=== PATIENT | male | born 1935 | race Caucasian/White ===

== ENCOUNTER 2017-04-02 10:10 | Emergency (ER) | payer MEDICARE, OTHER ==
[~2017-04-02] VITALS: Ht 167.6 cm; Wt 55.0 kg
[~2017-04-02 10:10] MED LIST: ANDROGEL1 % TD; COD LIVE1 PO; DOXAZOSIN1 MG PO; FLUARIX QUADRIV1 IN2 IM; FLUARIX QUADRIV1 INJ IM; FLULAVAL IM; FLUZONE SPLT1 M1 IM; LOTRISONE TOP; NAPROSYN500 MG PO; PROLIA60 MG/ML SC; XALATAN 0.005%2.5 ML OP; ZPAK PO; ZYRTEC ALLGY10 M1 PO
[2017-04-02] MEDS ORDERED: CALCIUM1250 MG PO (10:37)
[2017-04-02 11:15] LABS: URINE BILIRUBIN - DIPSTICK NEGATIVE (NEGATIVE); URINE BLOOD DIPSTICK NEGATIVE (NEGATIVE); URINE CLARITY CLEAR; URINE COLOR YELLOW; URINE GLUCOSE - DIPSTICK NEGATIVE (NEGATIVE); URINE KETONE TRACE mg/dL (NEGATIVE); URINE LEUK ESTERASE NEGATIVE (NEGATIVE); URINE NITRITE - DIPSTICK NEGATIVE (Negative); URINE PH 6.5 (4.5-8.0); URINE PROTEIN - DIPSTICK NEGATIVE (NEG-TRACE); URINE SPECIFIC GRAVITY 1.015
[2017-04-02 11:40] LABS: HEMOGLOBIN 11.7 g/dl (14.0-18.0); IMMATURE GRANULOCYTES 0.2 % (0.0-1.0); MEAN CELL VOLUME 96.3 fL CALC (80.0-100.0); MEAN CORPUSCULAR HGB 31.3 pG CALC (26.0-32.0); MEAN CORPUSCULAR HGB CONC 32.5 g/L CALC (32.0-36.0); NEUT# 3.85 thou/uL (1.82-7.42); RED BLOOD COUNT 3.74 mill/uL (4.70-6.10)
[2017-04-02 12:01] LABS: ALBUMIN 3.7 g/dL (3.2-5.0); ALKALINE PHOSPHATASE 43 u/l (38-126); ANION GAP 11 (6-22 (CALC)); BILIRUBIN, TOTAL 0.7 mg/dL (0.0-1.4); BUN 21 mg/dL (8-23); BUN/CREATININE RATIO 21 (12-20 (CALC)); CALCIUM 9.5 mg/dL (8.4-10.2); CARBON DIOXIDE 31 mmol/l (22-30); CHLORIDE 102 mmol/l (95-108); GFR > 60 ML/MIN (>=60 (CALC)); GFR FOR AFR.AMER. > 60 ML/MIN (>=60 (CALC)); GLUCOSE 79 mg/dL (82-115); POTASSIUM 4.1 mmol/l (3.5-5.1); SGOT/AST 25 u/l (19-48); SGPT/ALT 26 u/l (11-66); SODIUM 139 mmol/l (137-146); TOTAL PROTEIN 6.2 g/dL (6.3-8.2)
[2017-04-02 13:20] VITALS: BP 129/74
== END 2017-04-02 13:20 | disposition home or self-care (01) ==
LOC: ED 10:10
PROVIDERS: Emergency Medicine
DX: N30.90 Cystitis, unspecified without hematuria (principal)

== ENCOUNTER 2017-05-13 10:35 | Emergency (ER) | payer MEDICARE, OTHER ==
[~2017-05-13] VITALS: Ht 167.6 cm; Wt 58.2 kg
[~2017-05-13 10:35] MED LIST changes: +CALCIUM1250 MG PO
[2017-05-13] MEDS ORDERED: DORZOLAMIDE2 % OU (10:48)
[2017-05-13 11:45] LABS: URINE BILIRUBIN - DIPSTICK NEGATIVE (NEGATIVE); URINE BLOOD DIPSTICK NEGATIVE (NEGATIVE); URINE CLARITY CLEAR; URINE COLOR YELLOW; URINE GLUCOSE - DIPSTICK NEGATIVE (NEGATIVE); URINE KETONE NEGATIVE (NEGATIVE); URINE LEUK ESTERASE NEGATIVE (NEGATIVE); URINE NITRITE - DIPSTICK NEGATIVE (Negative); URINE PROTEIN - DIPSTICK NEGATIVE (NEG-TRACE); URINE UROBILINOGEN - DIPSTICK 0.2 E.U./dL (0.2)
[2017-05-13 12:42] VITALS: BP 143/69
== END 2017-05-13 12:52 | disposition home or self-care (01) ==
LOC: ED 10:35
PROVIDERS: Emergency Medicine
DX: N40.1 Benign prostatic hyperplasia with lower urinary tract symptoms (principal); R33.8 Other retention of urine

== ENCOUNTER 2017-08-07 16:52 | Emergency (ER) | payer MEDICARE, OTHER ==
[~2017-08-07] VITALS: Ht 167.6 cm; Wt 59.0 kg
[~2017-08-07 16:52] MED LIST changes: +DORZOLAMIDE2 % OU
[2017-08-07 20:10] LABS: HEMATOCRIT 35.4 % (39.0-50.0); HEMOGLOBIN 11.7 g/dl (14.0-18.0); IMMATURE GRANULOCYTES 0.4 % (0.0-1.0); MEAN CELL VOLUME 95.2 fL CALC (80.0-100.0); MEAN CORPUSCULAR HGB 31.5 pG CALC (26.0-32.0); MEAN CORPUSCULAR HGB CONC 33.1 g/L CALC (32.0-36.0); NEUT# 9.31 thou/uL (1.82-7.42); RED BLOOD COUNT 3.72 mill/uL (4.70-6.10); RED CELL DISTRI WIDTH 13.2 % (11.5-15.5)
[2017-08-07 20:15] LABS: URINE BILIRUBIN - DIPSTICK NEGATIVE (NEGATIVE); URINE BLOOD DIPSTICK NEGATIVE (NEGATIVE); URINE COLOR YELLOW; URINE GLUCOSE - DIPSTICK NEGATIVE (NEGATIVE); URINE KETONE 15 mg/dL (NEGATIVE); URINE LEUK ESTERASE NEGATIVE (NEGATIVE); URINE NITRITE - DIPSTICK NEGATIVE (Negative); URINE PROTEIN - DIPSTICK NEGATIVE (NEG-TRACE); URINE SPECIFIC GRAVITY 1.025; URINE UROBILINOGEN - DIPSTICK 0.2 E.U./dL (0.2)
[2017-08-07 20:21] LABS: URINE CLARITY CLEAR
[2017-08-07 20:30] LABS: ALBUMIN 3.9 g/dL (3.2-5.0); ALKALINE PHOSPHATASE 65 u/l (38-126); ANION GAP 15 (6-22 (CALC)); BUN 17 mg/dL (8-23); BUN/CREATININE RATIO 20 (12-20 (CALC)); CALCIUM 9.5 mg/dL (8.4-10.2); CARBON DIOXIDE 29 mmol/l (22-30); CHLORIDE 101 mmol/l (95-108); CREATININE 0.9 mg/dL (0.7-1.3); GFR > 60 ML/MIN (>=60 (CALC)); GFR FOR AFR.AMER. > 60 ML/MIN (>=60 (CALC)); GLUCOSE 118 mg/dL (82-115); POTASSIUM 4.1 mmol/l (3.5-5.1); SGOT/AST 29 u/l (19-48); SGPT/ALT 33 u/l (11-66); SODIUM 140 mmol/l (137-146); TOTAL PROTEIN 6.6 g/dL (6.3-8.2)
[2017-08-07 20:40] LABS: INFLUENZA A NONE DETECTED (NONE DETECT); INFLUENZA B NONE DETECTED (NONE DETECT)
[2017-08-07] MEDS ORDERED: AUGMENTIN875TAB PO (21:32)
[2017-08-07 22:08] VITALS: BP 144/69
== END 2017-08-07 22:06 | disposition home or self-care (01) ==
LOC: ED 16:52
PROVIDERS: Emergency Medicine
DX: M47.813 Spondylosis without myelopathy or radiculopathy, cervicothoracic region (principal); J02.0 Streptococcal pharyngitis

== ENCOUNTER → 2018-06-27 | Outpatient (REF) | payer MEDICARE, OTHER ==
[~2018-06-27] MED LIST changes: +AUGMENTIN875TAB PO
[2018-06-27 09:11] LABS: HEMATOCRIT 40.5 % (39.0-50.0); HEMOGLOBIN 12.8 g/dl (14.0-18.0); IMMATURE GRANULOCYTES 0.4 % (0.0-5.0); MEAN CELL VOLUME 97.6 fL CALC (80.0-100.0); MEAN CORPUSCULAR HGB 30.8 pG CALC (26.0-32.0); MEAN CORPUSCULAR HGB CONC 31.6 g/L CALC (32.0-36.0); NEUT# 3.59 thou/uL (1.82-7.42); RED BLOOD COUNT 4.15 mill/uL (4.70-6.10); RED CELL DISTRI WIDTH 13.5 % (11.5-15.5)
[2018-06-27 09:46] LABS: ALBUMIN 3.6 g/dL (3.2-5.0); ALKALINE PHOSPHATASE 51 u/l (38-126); ANION GAP 11 (6-22 (CALC)); BILIRUBIN, TOTAL 0.9 mg/dL (0.0-1.4); BUN 22 mg/dL (8-23); BUN/CREATININE RATIO 20 (12-20 (CALC)); CALCULATED LDLCHOLESTEROL 76 mg/dL (62-129 (CALC)); CARBON DIOXIDE 31 mmol/l (22-30); CHLORIDE 103 mmol/l (95-108); CREATININE 1.1 mg/dL (0.7-1.3); GFR > 60 ML/MIN (>=60 (CALC)); GFR FOR AFR.AMER. > 60 ML/MIN (>=60 (CALC)); HDL CHOLESTEROL 44 mg/dL (>=40); POTASSIUM 4.1 mmol/l (3.5-5.1); SGOT/AST 24 u/l (19-48); SODIUM 141 mmol/l (137-146); TOTAL CHOLESTEROL 132 mg/dl (0-199); TOTAL PROTEIN 6.3 g/dL (6.3-8.2); TOTAL TRIGLYCERIDES 58 mg/dl (30-149); VLDL CHOLESTROL 12 mg/dl (0-38 (CALC))
== END | disposition home or self-care (01) ==
LOC: LAB 08:36
PROVIDERS: ATTEND Internal Medicine Geriatric Medicine
DX: I10 Essential (primary) hypertension (principal); M81.0 Age-related osteoporosis without current pathological fracture

== ENCOUNTER → 2018-11-30 | Outpatient (REF) | payer MEDICARE, OTHER ==
[2018-11-30 09:45] LABS: HEMATOCRIT 40.3 % (39.0-50.0); HEMOGLOBIN 12.7 g/dl (14.0-18.0); IMMATURE GRANULOCYTES 0.3 % (0.0-5.0); MEAN CELL VOLUME 96.4 fL CALC (80.0-100.0); MEAN CORPUSCULAR HGB 30.4 pG CALC (26.0-32.0); MEAN CORPUSCULAR HGB CONC 31.5 g/L CALC (32.0-36.0); NEUT# 4.17 thou/uL (1.82-7.42); RED BLOOD COUNT 4.18 mill/uL (4.70-6.10)
[2018-11-30 11:57] LABS: ALBUMIN 3.9 g/dL (3.2-5.0); ALKALINE PHOSPHATASE 75 u/l (38-126); ANION GAP 11 (6-22 (CALC)); BILIRUBIN, TOTAL 0.6 mg/dL (0.0-1.4); BUN 24 mg/dL (8-23); BUN/CREATININE RATIO 21 (12-20 (CALC)); CALCULATED LDLCHOLESTEROL 76 mg/dL (62-129 (CALC)); CARBON DIOXIDE 30 mmol/l (22-30); CHLORIDE 102 mmol/l (95-108); CHOLESTEROL HDL RATIO 2.8 (<4.4 (CALC)); CREATININE 1.1 mg/dL (0.7-1.3); GFR > 60 ML/MIN (>=60 (CALC)); GFR FOR AFR.AMER. > 60 ML/MIN (>=60 (CALC)); HDL CHOLESTEROL 47 mg/dL (>=40); POTASSIUM 4.3 mmol/l (3.5-5.1); SGOT/AST 28 u/l (19-48); SODIUM 139 mmol/l (137-146); TOTAL CHOLESTEROL 132 mg/dl (0-199); TOTAL PROTEIN 6.5 g/dL (6.3-8.2); TOTAL TRIGLYCERIDES 44 mg/dl (30-149); VLDL CHOLESTROL 9 mg/dl (0-38 (CALC))
== END | disposition home or self-care (01) ==
LOC: LAB 09:02
PROVIDERS: ATTEND Internal Medicine Geriatric Medicine
DX: I10 Essential (primary) hypertension (principal)

== ENCOUNTER 2019-02-13 13:41 | Emergency (ER) | payer MEDICARE, OTHER ==
[~2019-02-13] VITALS: Ht 167.6 cm; Wt 59.0 kg
[2019-02-13] MEDS ORDERED: LUPRON DEPOT22.5 MG IM (14:24)
[2019-02-13] MEDS ORDERED: PROLIA60 MG/ML SC (14:24)
[2019-02-13] MEDS ORDERED: MEDDOSEPAK PO (14:31)
[2019-02-13] MEDS ORDERED: ULTRAM50 M1 PO (14:31)
[2019-02-13] MEDS ORDERED: ZANAFLEX4 MG PO (14:31)
[2019-02-13 14:55] VITALS: BP 124/74
== END 2019-02-13 15:07 | disposition home or self-care (01) ==
LOC: ED 13:41
DX: M54.2 Cervicalgia (principal)

== ENCOUNTER 2019-05-26 19:10 | Observation (INO) | payer MEDICARE, OTHER ==
[~2019-05-26] VITALS: Ht 170.2 cm; Wt 55.1 kg
[2019-05-26 20:20] LABS: URINE BLOOD DIPSTICK NEGATIVE (NEGATIVE); URINE COLOR YELLOW; URINE GLUCOSE - DIPSTICK NEGATIVE (NEGATIVE); URINE KETONE 15 mg/dL (NEGATIVE); URINE LEUK ESTERASE NEGATIVE (NEGATIVE); URINE NITRITE - DIPSTICK NEGATIVE (Negative); URINE PROTEIN - DIPSTICK NEGATIVE (NEG-TRACE); URINE SPECIFIC GRAVITY >=1.030; URINE UROBILINOGEN - DIPSTICK 0.2 E.U./dL (0.2)
[2019-05-26 20:21] LABS: URINE BILIRUBIN - DIPSTICK NEGATIVE (NEGATIVE)
[2019-05-26 20:31] LABS: HEMATOCRIT 37.9 % (39.0-50.0); HEMOGLOBIN 12.2 g/dl (14.0-18.0); IMMATURE GRANULOCYTES 0.3 % (0.0-5.0); MEAN CELL VOLUME 95.2 fL CALC (80.0-100.0); MEAN CORPUSCULAR HGB 30.7 pG CALC (26.0-32.0); MEAN CORPUSCULAR HGB CONC 32.2 g/L CALC (32.0-36.0); NEUT# 7.67 thou/uL (1.82-7.42); RED BLOOD COUNT 3.98 mill/uL (4.70-6.10); RED CELL DISTRI WIDTH 13.2 % (11.5-15.5)
[2019-05-26 20:40] LABS: INTERNATIONAL NORMALIZED RATIO 1.1 RATIO (0.7-1.3); PROTHROMBIN TIME 11.5 SECONDS (9.0-12.5)
[2019-05-26 20:41] LABS: ALBUMIN 4.1 g/dL (3.2-5.0); ALKALINE PHOSPHATASE 63 u/l (38-126); ANION GAP 12 (6-22 (CALC)); BUN 21 mg/dL (8-23); BUN/CREATININE RATIO 19 (12-20 (CALC)); CARBON DIOXIDE 30 mmol/l (22-30); CHLORIDE 103 mmol/l (95-108); CREATININE 1.1 mg/dL (0.7-1.3); GFR > 60 ML/MIN (>=60 (CALC)); GFR FOR AFR.AMER. > 60 ML/MIN (>=60 (CALC)); POTASSIUM 3.9 mmol/l (3.5-5.1); SGOT/AST 29 u/l (19-48); SODIUM 141 mmol/l (137-146); TOTAL PROTEIN 6.8 g/dL (6.3-8.2)
[2019-05-26 20:53] LABS: MYOGLOBIN 275 ng/mL (0 - 121)
[2019-05-26 22:30] VITALS: BP 158/72
[2019-05-26 22:45] VITALS: BP 157/78
[2019-05-26 23:00] VITALS: BP 164/71
[2019-05-27] VITALS (7 sets, daily range): BP systolic 113–142; BP diastolic 52–68
[2019-05-27 09:42] LABS: HEMATOCRIT 38.5 % (39.0-50.0); HEMOGLOBIN 12.2 g/dl (14.0-18.0); IMMATURE GRANULOCYTES 0.5 % (0.0-5.0); MEAN CORPUSCULAR HGB 30.7 pG CALC (26.0-32.0); MEAN CORPUSCULAR HGB CONC 31.7 g/L CALC (32.0-36.0); NEUT# 8.73 thou/uL (1.82-7.42); RED BLOOD COUNT 3.97 mill/uL (4.70-6.10); RED CELL DISTRI WIDTH 13.1 % (11.5-15.5)
[2019-05-27 09:48] LABS: ANION GAP 8 (6-22 (CALC)); BUN 17 mg/dL (8-23); BUN/CREATININE RATIO 19 (12-20 (CALC)); CARBON DIOXIDE 30 mmol/l (22-30); CHLORIDE 105 mmol/l (95-108); CREATININE 0.9 mg/dL (0.7-1.3); GFR > 60 ML/MIN (>=60 (CALC)); GFR FOR AFR.AMER. > 60 ML/MIN (>=60 (CALC)); POTASSIUM 3.6 mmol/l (3.5-5.1); SODIUM 140 mmol/l (137-146)
[2019-05-28] VITALS (8 sets, daily range): BP systolic 101–139; BP diastolic 52–76
[2019-05-28 02:47] LABS: HEMATOCRIT 39.5 % (39.0-50.0); HEMOGLOBIN 12.8 g/dl (14.0-18.0); IMMATURE GRANULOCYTES 0.6 % (0.0-5.0); MEAN CELL VOLUME 94.7 fL CALC (80.0-100.0); MEAN CORPUSCULAR HGB 30.7 pG CALC (26.0-32.0); MEAN CORPUSCULAR HGB CONC 32.4 g/L CALC (32.0-36.0); NEUT# 12.98 thou/uL (1.82-7.42); RED BLOOD COUNT 4.17 mill/uL (4.70-6.10); RED CELL DISTRI WIDTH 12.8 % (11.5-15.5)
[2019-05-28 03:02] LABS: ANION GAP 11 (6-22 (CALC)); BUN 18 mg/dL (8-23); BUN/CREATININE RATIO 19 (12-20 (CALC)); CALCULATED LDLCHOLESTEROL 77 mg/dL (62-129 (CALC)); CARBON DIOXIDE 30 mmol/l (22-30); CHLORIDE 99 mmol/l (95-108); CREATININE 0.9 mg/dL (0.7-1.3); GFR > 60 ML/MIN (>=60 (CALC)); GFR FOR AFR.AMER. > 60 ML/MIN (>=60 (CALC)); HDL CHOLESTEROL 43 mg/dL (>=40); POTASSIUM 3.5 mmol/l (3.5-5.1); SODIUM 137 mmol/l (137-146); TOTAL CHOLESTEROL 130 mg/dl (0-199); TOTAL TRIGLYCERIDES 52 mg/dl (30-149); VLDL CHOLESTROL 10 mg/dl (0-38 (CALC))
[2019-05-28 07:13] LABS: URINE BILIRUBIN - DIPSTICK NEGATIVE (NEGATIVE); URINE BLOOD DIPSTICK LARGE (NEGATIVE); URINE COLOR YELLOW; URINE GLUCOSE - DIPSTICK NEGATIVE (NEGATIVE); URINE KETONE NEGATIVE (NEGATIVE); URINE LEUK ESTERASE NEGATIVE (Negative); URINE PROTEIN - DIPSTICK TRACE mg/dL (NEG-TRACE)
[2019-05-28 07:16] LABS: URINE CLARITY CLEAR
[2019-05-28 07:17] LABS: URINE NITRITE - DIPSTICK NEGATIVE (Negative)
[2019-05-28 07:20] LABS: URINE RBC >100 RBC/hpf (0-5)
[2019-05-28 07:22] LABS: URINE SQUAMOUS EPITHELIAL CELL MODERATE EPI/hpf (0-FEW)
[2019-05-28 07:23] LABS: URINE BACTERIA MODERATE hpf
[2019-05-29] VITALS: BP 171/76
[2019-05-29 04:00] VITALS: BP 150/90
[2019-05-29 04:56] LABS: HEMATOCRIT 40.4 % (39.0-50.0); HEMOGLOBIN 13.1 g/dl (14.0-18.0); IMMATURE GRANULOCYTES 0.5 % (0.0-5.0); MEAN CORPUSCULAR HGB 30.5 pG CALC (26.0-32.0); MEAN CORPUSCULAR HGB CONC 32.4 g/L CALC (32.0-36.0); NEUT# 9.24 thou/uL (1.82-7.42); RED BLOOD COUNT 4.3 mill/uL (4.70-6.10); RED CELL DISTRI WIDTH 12.8 % (11.5-15.5)
[2019-05-29 05:22] LABS: ANION GAP 10 (6-22 (CALC)); BUN 18 mg/dL (8-23); BUN/CREATININE RATIO 18 (12-20 (CALC)); CARBON DIOXIDE 30 mmol/l (22-30); CHLORIDE 100 mmol/l (95-108); GFR > 60 ML/MIN (>=60 (CALC)); GFR FOR AFR.AMER. > 60 ML/MIN (>=60 (CALC)); POTASSIUM 3.6 mmol/l (3.5-5.1); SODIUM 137 mmol/l (137-146)
[2019-05-29 07:20] VITALS: BP 168/69
[2019-05-29 10:22] VITALS: BP 126/72
[2019-05-29 16:48] VITALS: BP 119/63
[2019-05-29 19:49] VITALS: BP 122/69
[2019-05-30 08:01] VITALS: BP 127/64
[2019-05-30 08:47] VITALS: BP 122/69
== END 2019-05-30 13:00 ==
LOC: ED 19:10 → ED-I 21:31 → ED 21:50 → ICU 21:51 → MS2 21:51 → ICU 21:51 → MS2 05-28 09:04 → ICU 05-28 09:04 → MS2 05-29 07:18
PROVIDERS: Emergency Medicine; ADMIT Internal Medicine Geriatric Medicine; ATTEND Internal Medicine Geriatric Medicine
DX: R42 Dizziness and giddiness (principal); S52.501A Unspecified fracture of the lower end of right radius, initial encounter for closed fracture; S52.611A Displaced fracture of right ulna styloid process, initial encounter for closed fracture; I49.3 Ventricular premature depolarization; I10 Essential (primary) hypertension; E78.5 Hyperlipidemia, unspecified; I25.10 Atherosclerotic heart disease of native coronary artery without angina pectoris; R50.9 Fever, unspecified; W19.XXXA Unspecified fall, initial encounter; Y92.009 Unspecified place in unspecified non-institutional (private) residence as the place of occurrence of the external cause; Z60.2 Problems related to living alone

== ENCOUNTER → 2019-05-26 | Day surgery (SDC) | payer MEDICARE, OTHER ==
[~2019-05-26] VITALS: Ht 170.2 cm; Wt 59.0 kg
[~2019-05-26] MED LIST changes: +BRIMONIDINE0.2 % OU; +CARDURA2 MG PO; +LUPRON DEPOT22.5 MG IM; +MEDDOSEPAK PO; +ULTRAM50 M1 PO; -XALATAN 0.005%2.5 ML OP; +XALATAN 0.005%2.5 ML OU; +ZANAFLEX4 MG PO
[2019-05-26 11:40] VITALS: BP 135/63
== END | disposition home or self-care (01) ==
LOC: ENDO 09:28 → ORM 12:00
PROVIDERS: ATTEND Internal Medicine Gastroenterology
PROC: 0DBL8ZX Excision of Transverse Colon, Via Natural or Artificial Opening Endoscopic, Diagnostic (ICD-10-PCS; principal; 2019-05-26)
DX: K57.31 Diverticulosis of large intestine without perforation or abscess with bleeding (principal); K63.5 Polyp of colon; K64.4 Residual hemorrhoidal skin tags; K64.8 Other hemorrhoids

== ENCOUNTER 2020-07-27 11:50 | Inpatient (IN) | payer MEDICARE, OTHER ==
[~2020-07-27] VITALS: Ht 170.2 cm; Wt 86.8 kg
[2020-07-27 12:45] LABS: HEMATOCRIT 38.9 % (39.0-50.0); HEMOGLOBIN 12.1 g/dl (14.0-18.0); IMMATURE GRANULOCYTES 0.6 % (0.0-5.0); MEAN CELL VOLUME 94.9 fL CALC (80.0-100.0); MEAN CORPUSCULAR HGB 29.5 pG CALC (26.0-32.0); MEAN CORPUSCULAR HGB CONC 31.1 g/dL CAL (32.0-36.0); NEUT# 5.84 thou/uL (1.82-7.42); RED BLOOD COUNT 4.1 mill/uL (4.70-6.10); RED CELL DISTRI WIDTH 14.2 % (11.5-15.5)
[2020-07-27 13:03] LABS: ALBUMIN 3.8 g/dL (3.2-5.0); ALKALINE PHOSPHATASE 56 u/l (38-126); ANION GAP 12 (6-22 (CALC)); BUN 22 mg/dL (8-23); BUN/CREATININE RATIO 19 (12-20 (CALC)); CARBON DIOXIDE 25 mmol/l (22-30); CHLORIDE 102 mmol/l (95-108); CREATININE 1.2 mg/dL (0.7-1.3); GFR 58 ML/MIN (>=60 (CALC)); GFR FOR AFR.AMER. > 60 ML/MIN (>=60 (CALC)); POTASSIUM 4.1 mmol/l (3.5-5.1); SGOT/AST 36 u/l (19-48); SODIUM 135 mmol/l (137-146); TOTAL PROTEIN 6.6 g/dL (6.3-8.2)
[2020-07-27] MEDS ORDERED: GINKGO BILOB60 MG PO (13:10)
[2020-07-27] MEDS ORDERED: COQ-10100 MG PO (13:10)
[2020-07-27] MEDS ORDERED: [UNRECOGNIZED DRUG - OTHER] (13:11)
[2020-07-27] MEDS ORDERED: TAMSULOSIN HCL0.4 MG PO (13:12)
[2020-07-27] MEDS ORDERED: RESVERATROL100 MG PO (13:12)
[2020-07-27 14:29] LABS: ACT PARTIAL THROMBO TIME 26.5 SECONDS (20.0-32.5); INTERNATIONAL NORMALIZED RATIO 1.2 RATIO (0.7-1.3); PROTHROMBIN TIME 12.2 SECONDS (9.0-12.5)
[2020-07-27 17:21] LABS: URINE BILIRUBIN - DIPSTICK NEGATIVE (NEGATIVE); URINE BLOOD DIPSTICK NEGATIVE (NEGATIVE); URINE COLOR YELLOW; URINE GLUCOSE - DIPSTICK NEGATIVE (NEGATIVE); URINE KETONE 15 mg/dL (NEGATIVE); URINE LEUK ESTERASE NEGATIVE (NEGATIVE); URINE NITRITE - DIPSTICK NEGATIVE (Negative); URINE PH 5.5 (4.5-8.0); URINE PROTEIN - DIPSTICK NEGATIVE (NEG-TRACE); URINE SPECIFIC GRAVITY >=1.030; URINE UROBILINOGEN - DIPSTICK 0.2 E.U./dL (0.2)
[2020-07-27 17:30] VITALS: BP 171/80
[2020-07-27 19:55] VITALS: BP 142/72
[2020-07-27 23:50] VITALS: BP 129/65
[2020-07-28 04:10] VITALS: BP 118/59
[2020-07-28 08:02] VITALS: BP 139/67
[2020-07-28 10:51] VITALS: BP 93/58
[2020-07-28 15:40] VITALS: BP 118/61
[2020-07-28 20:00] VITALS: BP 124/63
[2020-07-29] VITALS (7 sets, daily range): BP systolic 94–145; BP diastolic 53–81
[2020-07-29 05:44] LABS: HEMATOCRIT 40.5 % (39.0-50.0); HEMOGLOBIN 13.1 g/dl (14.0-18.0); IMMATURE GRANULOCYTES 0.7 % (0.0-5.0); MEAN CELL VOLUME 92.5 fL CALC (80.0-100.0); MEAN CORPUSCULAR HGB 29.9 pG CALC (26.0-32.0); MEAN CORPUSCULAR HGB CONC 32.3 g/dL CAL (32.0-36.0); NEUT# 5.79 thou/uL (1.82-7.42); RED BLOOD COUNT 4.38 mill/uL (4.70-6.10); RED CELL DISTRI WIDTH 13.8 % (11.5-15.5)
[2020-07-29 06:06] LABS: ALBUMIN 3.1 g/dL (3.2-5.0); ALKALINE PHOSPHATASE 50 u/l (38-126); ANION GAP 9 (6-22 (CALC)); BILIRUBIN, TOTAL 1.3 mg/dL (0.0-1.4); BUN 24 mg/dL (8-23); BUN/CREATININE RATIO 23 (12-20 (CALC)); CARBON DIOXIDE 30 mmol/l (22-30); CHLORIDE 100 mmol/l (95-108); GFR > 60 ML/MIN (>=60 (CALC)); GFR FOR AFR.AMER. > 60 ML/MIN (>=60 (CALC)); POTASSIUM 3.4 mmol/l (3.5-5.1); SGOT/AST 37 u/l (19-48); SODIUM 135 mmol/l (137-146); TOTAL PROTEIN 5.7 g/dL (6.3-8.2)
[2020-07-29 09:26] LABS: MAGNESIUM 1.6 mg/dL (1.6-2.3)
[2020-07-30 04:12] VITALS: BP 134/74
[2020-07-30 09:05] VITALS: BP 134/73
[2020-07-30 11:38] VITALS: BP 104/60
[2020-07-30 14:40] VITALS: BP 116/64
[2020-07-30 18:58] VITALS: BP 147/68
[2020-07-31] VITALS (7 sets, daily range): BP systolic 99–155; BP diastolic 58–88
[2020-07-31 05:31] LABS: HEMATOCRIT 43.5 % (39.0-50.0); HEMOGLOBIN 13.8 g/dl (14.0-18.0); IMMATURE GRANULOCYTES 0.6 % (0.0-5.0); MEAN CELL VOLUME 92.2 fL CALC (80.0-100.0); MEAN CORPUSCULAR HGB 29.2 pG CALC (26.0-32.0); MEAN CORPUSCULAR HGB CONC 31.7 g/dL CAL (32.0-36.0); NEUT# 6.07 thou/uL (1.82-7.42); RED BLOOD COUNT 4.72 mill/uL (4.70-6.10); RED CELL DISTRI WIDTH 13.7 % (11.5-15.5)
[2020-07-31 05:53] LABS: ALKALINE PHOSPHATASE 50 u/l (38-126); BILIRUBIN, TOTAL 0.8 mg/dL (0.0-1.4); BUN 27 mg/dL (8-23); BUN/CREATININE RATIO 22 (12-20 (CALC)); CARBON DIOXIDE 30 mmol/l (22-30); CHLORIDE 100 mmol/l (95-108); CREATININE 1.2 mg/dL (0.7-1.3); GFR 58 ML/MIN (>=60 (CALC)); GFR FOR AFR.AMER. > 60 ML/MIN (>=60 (CALC)); SGOT/AST 34 u/l (19-48); SODIUM 135 mmol/l (137-146); TOTAL PROTEIN 5.5 g/dL (6.3-8.2)
[2020-07-31 06:03] LABS: ANION GAP 9 (6-22 (CALC)); C-REACTIVE PROTEIN 14.1 mg/dL (0-0.9); POTASSIUM 4.1 mmol/l (3.5-5.1)
[2020-08-01 03:30] VITALS: BP 132/71
[2020-08-01 06:00] LABS: HEMATOCRIT 44.8 % (39.0-50.0); HEMOGLOBIN 14.1 g/dl (14.0-18.0); IMMATURE GRANULOCYTES 0.5 % (0.0-5.0); MEAN CELL VOLUME 92.8 fL CALC (80.0-100.0); MEAN CORPUSCULAR HGB 29.2 pG CALC (26.0-32.0); MEAN CORPUSCULAR HGB CONC 31.5 g/dL CAL (32.0-36.0); NEUT# 6.43 thou/uL (1.82-7.42); RED BLOOD COUNT 4.83 mill/uL (4.70-6.10); RED CELL DISTRI WIDTH 13.6 % (11.5-15.5)
[2020-08-01 06:21] LABS: ALKALINE PHOSPHATASE 52 u/l (38-126); ANION GAP 9 (6-22 (CALC)); BILIRUBIN, TOTAL 0.8 mg/dL (0.0-1.4); BUN 28 mg/dL (8-23); BUN/CREATININE RATIO 24 (12-20 (CALC)); CARBON DIOXIDE 31 mmol/l (22-30); CHLORIDE 99 mmol/l (95-108); CREATININE 1.2 mg/dL (0.7-1.3); GFR 58 ML/MIN (>=60 (CALC)); GFR FOR AFR.AMER. > 60 ML/MIN (>=60 (CALC)); POTASSIUM 4.3 mmol/l (3.5-5.1); SGOT/AST 41 u/l (19-48); SODIUM 135 mmol/l (137-146); TOTAL PROTEIN 5.6 g/dL (6.3-8.2)
[2020-08-01 06:50] LABS: C-REACTIVE PROTEIN 17.6 mg/dL (0-0.9)
[2020-08-01 08:00] VITALS: BP 141/76
[2020-08-01 11:32] VITALS: BP 97/58
[2020-08-01 15:10] VITALS: BP 128/63
[2020-08-01 20:30] VITALS: BP 121/68
[2020-08-01 23:50] VITALS: BP 109/65
[2020-08-02 04:22] VITALS: BP 136/76
[2020-08-02 07:30] VITALS: BP 148/81
[2020-08-02 11:15] VITALS: BP 117/61
[2020-08-02 15:25] VITALS: BP 125/69
[2020-08-02 19:00] VITALS: BP 145/89
[2020-08-02 23:45] VITALS: BP 123/79
[2020-08-03] VITALS (8 sets, daily range): BP systolic 86–143; BP diastolic 51–78
[2020-08-03 06:33] LABS: HEMATOCRIT 47.7 % (39.0-50.0); MEAN CELL VOLUME 92.1 fL CALC (80.0-100.0); MEAN CORPUSCULAR HGB CONC 31.4 g/dL CAL (32.0-36.0); RED BLOOD COUNT 5.18 mill/uL (4.70-6.10); RED CELL DISTRI WIDTH 13.6 % (11.5-15.5)
[2020-08-03 07:06] LABS: ALKALINE PHOSPHATASE 50 u/l (38-126); BILIRUBIN, TOTAL 0.7 mg/dL (0.0-1.4); BUN 39 mg/dL (8-23); BUN/CREATININE RATIO 36 (12-20 (CALC)); C-REACTIVE PROTEIN 8.7 mg/dL (0-0.9); CARBON DIOXIDE 28 mmol/l (22-30); CHLORIDE 101 mmol/l (95-108); CREATININE 1.1 mg/dL (0.7-1.3); GFR > 60 ML/MIN (>=60 (CALC)); GFR FOR AFR.AMER. > 60 ML/MIN (>=60 (CALC)); SGOT/AST 65 u/l (19-48); SODIUM 137 mmol/l (137-146); TOTAL PROTEIN 5.9 g/dL (6.3-8.2)
[2020-08-03 07:08] LABS: ANION GAP 13 (6-22 (CALC)); POTASSIUM 5.2 mmol/l (3.5-5.1)
[2020-08-04] VITALS (11 sets, daily range): BP systolic 87–136; BP diastolic 46–79
[2020-08-04 06:34] LABS: ALBUMIN 2.7 g/dL (3.2-5.0); ALKALINE PHOSPHATASE 54 u/l (38-126); BILIRUBIN, TOTAL 0.5 mg/dL (0.0-1.4); BUN 40 mg/dL (8-23); BUN/CREATININE RATIO 33 (12-20 (CALC)); CARBON DIOXIDE 32 mmol/l (22-30); CHLORIDE 101 mmol/l (95-108); CREATININE 1.2 mg/dL (0.7-1.3); GFR 58 ML/MIN (>=60 (CALC)); GFR FOR AFR.AMER. > 60 ML/MIN (>=60 (CALC)); SGOT/AST 41 u/l (19-48); SODIUM 136 mmol/l (137-146); TOTAL PROTEIN 5.3 g/dL (6.3-8.2)
[2020-08-04 06:38] LABS: ANION GAP 8 (6-22 (CALC)); POTASSIUM 5.4 mmol/l (3.5-5.1)
[2020-08-05] VITALS (12 sets, daily range): BP systolic 77–146; BP diastolic 50–74
[2020-08-05 06:06] LABS: ALBUMIN 2.4 g/dL (3.2-5.0); ALKALINE PHOSPHATASE 49 u/l (38-126); ANION GAP 9 (6-22 (CALC)); BILIRUBIN, TOTAL 0.4 mg/dL (0.0-1.4); BUN 40 mg/dL (8-23); BUN/CREATININE RATIO 38 (12-20 (CALC)); CARBON DIOXIDE 26 mmol/l (22-30); CHLORIDE 105 mmol/l (95-108); GFR > 60 ML/MIN (>=60 (CALC)); GFR FOR AFR.AMER. > 60 ML/MIN (>=60 (CALC)); POTASSIUM 4.8 mmol/l (3.5-5.1); SGOT/AST 35 u/l (19-48); SODIUM 135 mmol/l (137-146); TOTAL PROTEIN 4.8 g/dL (6.3-8.2)
[2020-08-06] VITALS (12 sets, daily range): BP systolic 113–159; BP diastolic 66–83
[2020-08-06 06:11] LABS: HEMATOCRIT 51.9 % (39.0-50.0); HEMOGLOBIN 16.1 g/dl (14.0-18.0); IMMATURE GRANULOCYTES 1.3 % (0.0-5.0); MEAN CELL VOLUME 92.2 fL CALC (80.0-100.0); MEAN CORPUSCULAR HGB 28.6 pG CALC (26.0-32.0); NEUT# 19.62 thou/uL (1.82-7.42); RED BLOOD COUNT 5.63 mill/uL (4.70-6.10); RED CELL DISTRI WIDTH 13.9 % (11.5-15.5)
[2020-08-06 06:33] LABS: ALKALINE PHOSPHATASE 73 u/l (38-126); BUN 39 mg/dL (8-23); BUN/CREATININE RATIO 32 (12-20 (CALC)); CARBON DIOXIDE 28 mmol/l (22-30); CHLORIDE 105 mmol/l (95-108); CREATININE 1.2 mg/dL (0.7-1.3); GFR 58 ML/MIN (>=60 (CALC)); GFR FOR AFR.AMER. > 60 ML/MIN (>=60 (CALC)); SGOT/AST 46 u/l (19-48); SODIUM 138 mmol/l (137-146)
[2020-08-06 06:38] LABS: ANION GAP 10 (6-22 (CALC)); POTASSIUM 5.3 mmol/l (3.5-5.1)
[2020-08-06 06:39] LABS: ALBUMIN 2.9 g/dL (3.2-5.0); BILIRUBIN, TOTAL 1.1 mg/dL (0.0-1.4)
[2020-08-06 06:48] LABS: C-REACTIVE PROTEIN 15.1 mg/dL (0-0.9)
[2020-08-07] VITALS (16 sets, daily range): BP systolic 112–160; BP diastolic 64–86
[2020-08-07 08:30] LABS: IMMATURE GRANULOCYTES 0.8 % (0.0-5.0); MEAN CELL VOLUME 91.9 fL CALC (80.0-100.0); MEAN CORPUSCULAR HGB 28.9 pG CALC (26.0-32.0); MEAN CORPUSCULAR HGB CONC 31.4 g/dL CAL (32.0-36.0); NEUT# 17.63 thou/uL (1.82-7.42); RED CELL DISTRI WIDTH 14.1 % (11.5-15.5)
[2020-08-07 10:47] LABS: ALBUMIN 2.6 g/dL (3.2-5.0); ALKALINE PHOSPHATASE 80 u/l (38-126); BILIRUBIN, TOTAL 1.3 mg/dL (0.0-1.4); BUN 38 mg/dL (8-23); BUN/CREATININE RATIO 41 (12-20 (CALC)); CARBON DIOXIDE 24 mmol/l (22-30); CHLORIDE 106 mmol/l (95-108); CREATININE 0.9 mg/dL (0.7-1.3); GFR > 60 ML/MIN (>=60 (CALC)); GFR FOR AFR.AMER. > 60 ML/MIN (>=60 (CALC)); SGOT/AST 53 u/l (19-48); SODIUM 137 mmol/l (137-146); TOTAL PROTEIN 5.6 g/dL (6.3-8.2)
[2020-08-07 10:59] LABS: ANION GAP 12 (6-22 (CALC)); C-REACTIVE PROTEIN 15.6 mg/dL (0-0.9); POTASSIUM 5.3 mmol/l (3.5-5.1)
[2020-08-07 11:12] LABS: HEMATOCRIT 45.1 % (39.0-50.0); HEMOGLOBIN 14.3 g/dl (14.0-18.0); RED BLOOD COUNT 4.92 mill/uL (4.70-6.10)
[2020-08-08] VITALS (56 sets, daily range): BP systolic 42–181; BP diastolic 6–106
[2020-08-08 05:53] LABS: HEMATOCRIT 48.9 % (39.0-50.0); HEMOGLOBIN 15.3 g/dl (14.0-18.0); IMMATURE GRANULOCYTES 1.2 % (0.0-5.0); MEAN CELL VOLUME 91.6 fL CALC (80.0-100.0); MEAN CORPUSCULAR HGB 28.7 pG CALC (26.0-32.0); MEAN CORPUSCULAR HGB CONC 31.3 g/dL CAL (32.0-36.0); NEUT# 22.34 thou/uL (1.82-7.42); RED BLOOD COUNT 5.34 mill/uL (4.70-6.10); RED CELL DISTRI WIDTH 14.1 % (11.5-15.5)
[2020-08-08 06:33] LABS: ALBUMIN 2.7 g/dL (3.2-5.0); ALKALINE PHOSPHATASE 85 u/l (38-126); BUN 37 mg/dL (8-23); BUN/CREATININE RATIO 45 (12-20 (CALC)); CARBON DIOXIDE 22 mmol/l (22-30); CHLORIDE 109 mmol/l (95-108); CREATININE 0.8 mg/dL (0.7-1.3); GFR > 60 ML/MIN (>=60 (CALC)); GFR FOR AFR.AMER. > 60 ML/MIN (>=60 (CALC)); SGOT/AST 61 u/l (19-48); SODIUM 138 mmol/l (137-146); TOTAL PROTEIN 5.7 g/dL (6.3-8.2)
[2020-08-08 06:35] LABS: ANION GAP 13 (6-22 (CALC))
[2020-08-08 06:36] LABS: POTASSIUM 5.7 mmol/l (3.5-5.1)
[2020-08-08 12:59] LABS: GFR 53 ML/MIN (>=60 (CALC)); GFR FOR AFR.AMER. > 60 ML/MIN (>=60 (CALC))
[2020-08-09] VITALS (84 sets, daily range): BP systolic 69–164; BP diastolic 45–87
[2020-08-09 06:26] LABS: HEMOGLOBIN 13.6 g/dl (14.0-18.0); IMMATURE GRANULOCYTES 0.8 % (0.0-5.0); MEAN CORPUSCULAR HGB 28.9 pG CALC (26.0-32.0); MEAN CORPUSCULAR HGB CONC 32.2 g/dL CAL (32.0-36.0); NEUT# 15.52 thou/uL (1.82-7.42); RED BLOOD COUNT 4.7 mill/uL (4.70-6.10); RED CELL DISTRI WIDTH 14.2 % (11.5-15.5)
[2020-08-09 06:30] LABS: HEMATOCRIT 42.3 % (39.0-50.0)
[2020-08-09 06:46] LABS: ALBUMIN 2.4 g/dL (3.2-5.0); ALKALINE PHOSPHATASE 68 u/l (38-126); BUN 48 mg/dL (8-23); BUN/CREATININE RATIO 42 (12-20 (CALC)); CHLORIDE 103 mmol/l (95-108); CREATININE 1.1 mg/dL (0.7-1.3); GFR > 60 ML/MIN (>=60 (CALC)); GFR FOR AFR.AMER. > 60 ML/MIN (>=60 (CALC)); POTASSIUM 4.9 mmol/l (3.5-5.1); SGOT/AST 44 u/l (19-48); SODIUM 137 mmol/l (137-146)
[2020-08-09 07:10] LABS: ANION GAP 9 (6-22 (CALC)); C-REACTIVE PROTEIN 14.2 mg/dL (0-0.9); CARBON DIOXIDE 30 mmol/l (22-30)
[2020-08-10] VITALS (50 sets, daily range): BP systolic 87–171; BP diastolic 54–93
[2020-08-10 04:53] LABS: HEMATOCRIT 42.2 % (39.0-50.0); HEMOGLOBIN 13.6 g/dl (14.0-18.0); MEAN CELL VOLUME 88.7 fL CALC (80.0-100.0); MEAN CORPUSCULAR HGB 28.6 pG CALC (26.0-32.0); MEAN CORPUSCULAR HGB CONC 32.2 g/dL CAL (32.0-36.0); RED BLOOD COUNT 4.76 mill/uL (4.70-6.10); RED CELL DISTRI WIDTH 14.1 % (11.5-15.5)
[2020-08-10 05:17] LABS: ALBUMIN 2.3 g/dL (3.2-5.0); ALKALINE PHOSPHATASE 64 u/l (38-126); ANION GAP 8 (6-22 (CALC)); BILIRUBIN, TOTAL 0.9 mg/dL (0.0-1.4); BUN 50 mg/dL (8-23); BUN/CREATININE RATIO 46 (12-20 (CALC)); CARBON DIOXIDE 31 mmol/l (22-30); CHLORIDE 102 mmol/l (95-108); CREATININE 1.1 mg/dL (0.7-1.3); GFR > 60 ML/MIN (>=60 (CALC)); GFR FOR AFR.AMER. > 60 ML/MIN (>=60 (CALC)); SGOT/AST 37 u/l (19-48); SODIUM 137 mmol/l (137-146); TOTAL PROTEIN 4.9 g/dL (6.3-8.2)
[2020-08-10 05:20] LABS: POTASSIUM 3.9 mmol/l (3.5-5.1)
[2020-08-11] VITALS (24 sets, daily range): BP systolic 70–151; BP diastolic 53–93
[2020-08-11 05:51] LABS: HEMATOCRIT 40.2 % (39.0-50.0); HEMOGLOBIN 12.8 g/dl (14.0-18.0); IMMATURE GRANULOCYTES 0.7 % (0.0-5.0); MEAN CELL VOLUME 89.7 fL CALC (80.0-100.0); MEAN CORPUSCULAR HGB 28.6 pG CALC (26.0-32.0); MEAN CORPUSCULAR HGB CONC 31.8 g/dL CAL (32.0-36.0); NEUT# 20.75 thou/uL (1.82-7.42); RED BLOOD COUNT 4.48 mill/uL (4.70-6.10); RED CELL DISTRI WIDTH 14.1 % (11.5-15.5)
[2020-08-11 06:21] LABS: ALBUMIN 2.3 g/dL (3.2-5.0); ALKALINE PHOSPHATASE 59 u/l (38-126); ANION GAP 8 (6-22 (CALC)); BILIRUBIN, TOTAL 0.9 mg/dL (0.0-1.4); BUN 46 mg/dL (8-23); BUN/CREATININE RATIO 51 (12-20 (CALC)); C-REACTIVE PROTEIN 6.1 mg/dL (0-0.9); CARBON DIOXIDE 32 mmol/l (22-30); CHLORIDE 102 mmol/l (95-108); CREATININE 0.9 mg/dL (0.7-1.3); GFR > 60 ML/MIN (>=60 (CALC)); GFR FOR AFR.AMER. > 60 ML/MIN (>=60 (CALC)); POTASSIUM 4.3 mmol/l (3.5-5.1); SGOT/AST 36 u/l (19-48); SODIUM 137 mmol/l (137-146); TOTAL PROTEIN 4.8 g/dL (6.3-8.2)
[2020-08-12] VITALS (49 sets, daily range): BP systolic 75–159; BP diastolic 46–82
[2020-08-12 05:40] LABS: HEMATOCRIT 38.4 % (39.0-50.0); HEMOGLOBIN 12.3 g/dl (14.0-18.0); IMMATURE GRANULOCYTES 0.6 % (0.0-5.0); MEAN CELL VOLUME 90.4 fL CALC (80.0-100.0); MEAN CORPUSCULAR HGB 28.9 pG CALC (26.0-32.0); NEUT# 25.99 thou/uL (1.82-7.42); RED BLOOD COUNT 4.25 mill/uL (4.70-6.10); RED CELL DISTRI WIDTH 14.3 % (11.5-15.5)
[2020-08-12 06:01] LABS: ALBUMIN 2.3 g/dL (3.2-5.0); ALKALINE PHOSPHATASE 58 u/l (38-126); ANION GAP 6 (6-22 (CALC)); BILIRUBIN, TOTAL 1.1 mg/dL (0.0-1.4); BUN 41 mg/dL (8-23); BUN/CREATININE RATIO 45 (12-20 (CALC)); C-REACTIVE PROTEIN 8.5 mg/dL (0-0.9); CARBON DIOXIDE 33 mmol/l (22-30); CHLORIDE 103 mmol/l (95-108); CREATININE 0.9 mg/dL (0.7-1.3); GFR > 60 ML/MIN (>=60 (CALC)); GFR FOR AFR.AMER. > 60 ML/MIN (>=60 (CALC)); POTASSIUM 4.3 mmol/l (3.5-5.1); SGOT/AST 44 u/l (19-48); SODIUM 138 mmol/l (137-146); TOTAL PROTEIN 4.7 g/dL (6.3-8.2)
[2020-08-13] VITALS (38 sets, daily range): BP systolic 79–156; BP diastolic 52–80
[2020-08-14] VITALS (24 sets, daily range): BP systolic 51–140; BP diastolic 32–79
[2020-08-14 05:40] LABS: IMMATURE GRANULOCYTES 0.5 % (0.0-5.0); MEAN CELL VOLUME 89.5 fL CALC (80.0-100.0); MEAN CORPUSCULAR HGB 29.4 pG CALC (26.0-32.0); MEAN CORPUSCULAR HGB CONC 32.8 g/dL CAL (32.0-36.0); NEUT# 11.84 thou/uL (1.82-7.42); RED BLOOD COUNT 3.44 mill/uL (4.70-6.10); RED CELL DISTRI WIDTH 14.2 % (11.5-15.5)
[2020-08-14 05:56] LABS: HEMATOCRIT 30.8 % (39.0-50.0); HEMOGLOBIN 10.1 g/dl (14.0-18.0)
[2020-08-14 06:12] LABS: ALKALINE PHOSPHATASE 58 u/l (38-126); BILIRUBIN, TOTAL 1.5 mg/dL (0.0-1.4); BUN 30 mg/dL (8-23); BUN/CREATININE RATIO 36 (12-20 (CALC)); CARBON DIOXIDE 37 mmol/l (22-30); CHLORIDE 96 mmol/l (95-108); CREATININE 0.8 mg/dL (0.7-1.3); GFR > 60 ML/MIN (>=60 (CALC)); GFR FOR AFR.AMER. > 60 ML/MIN (>=60 (CALC)); SGOT/AST 38 u/l (19-48); SODIUM 135 mmol/l (137-146); TOTAL PROTEIN 4.2 g/dL (6.3-8.2)
[2020-08-14 07:18] LABS: ANION GAP 5 (6-22 (CALC)); C-REACTIVE PROTEIN 24.1 mg/dL (0-0.9)
[2020-08-14 07:19] LABS: POTASSIUM 3.2 mmol/l (3.5-5.1)
== END 2020-08-14 12:29 | disposition expired | DRG 308 ==
LOC: ED 11:50 → ED-I 12:10 → ED 16:25 → MS2 16:26 → ICU 07-28 17:12 → MS2 08-03 10:50 → ICU 08-03 14:08
PROVIDERS: Internal Medicine; Nurse Practitioner Family; Physician Assistant; ADMIT Internal Medicine; ATTEND Internal Medicine
PROC: XW033E5 Introduction of Remdesivir Anti-infective into Peripheral Vein, Percutaneous Approach, New Technology Group 5 (ICD-10-PCS; principal; 2020-08-02)
PROC: 5A1955Z Respiratory Ventilation, Greater than 96 Consecutive Hours (ICD-10-PCS; 2020-08-08)
PROC: 0T9B70Z Drainage of Bladder with Drainage Device, Via Natural or Artificial Opening (ICD-10-PCS; 2020-08-08)
PROC: 02HV33Z Insertion of Infusion Device into Superior Vena Cava, Percutaneous Approach (ICD-10-PCS; 2020-08-08)
PROC: 0BH17EZ Insertion of Endotracheal Airway into Trachea, Via Natural or Artificial Opening (ICD-10-PCS; 2020-08-08)
DX: I48.91 Unspecified atrial fibrillation (principal); U07.1 COVID-19; J12.89 Other viral pneumonia; J96.01 Acute respiratory failure with hypoxia; I63.9 Cerebral infarction, unspecified; T82.838A Hemorrhage due to vascular prosthetic devices, implants and grafts, initial encounter; G81.91 Hemiplegia, unspecified affecting right dominant side; I11.0 Hypertensive heart disease with heart failure; I50.9 Heart failure, unspecified; H40.9 Unspecified glaucoma; R32 Unspecified urinary incontinence; E87.6 Hypokalemia; E87.5 Hyperkalemia; T38.0X5A Adverse effect of glucocorticoids and synthetic analogues, initial encounter; Y83.8 Other surgical procedures as the cause of abnormal reaction of the patient, or of later complication, without mention of misadventure at the time of the procedure; Z66 Do not resuscitate; Z85.46 Personal history of malignant neoplasm of prostate
CPT/HCPCS: G0378; J1100; J1650; J2060; J3475; Q9967; S0164